=== PATIENT | female | born 1990 | race Caucasian/White ===

== ENCOUNTER 2019-05-06 09:17 | Outpatient (CLI) | payer OTHER ==
[~2019-05-06] VITALS: Ht 139.7 cm; Wt 41.4 kg
[2019-05-06 09:25] VITALS: BP 109/66
[2019-05-06] MEDS ORDERED: FLU VACC QS2019-20 36MOS UP/PF 0.5 ML IM-VACC ONE (10:00)
== END 2019-05-06 10:23 | disposition home or self-care (01) ==
LOC: LDOP 09:17
PROVIDERS: ATTEND Obstetrics & Gynecology
DX: Z04.1 Encounter for examination and observation following transport accident (principal); Z34.02 Encounter for supervision of normal first pregnancy, second trimester; Z3A.20 20 weeks gestation of pregnancy
CPT/HCPCS: 90686; 96372; 99201; G0463

== ENCOUNTER 2019-08-18 14:13 | Outpatient (CLI) | payer OTHER ==
[~2019-08-18] VITALS: Ht 139.7 cm; Wt 48.4 kg
[2019-08-18 14:28] VITALS: BP 104/57
[2019-08-18 16:58] LABS: MICROSCOPIC INDICATED
== END 2019-08-18 16:15 | disposition home or self-care (01) ==
LOC: LDOP 14:13
PROVIDERS: ATTEND Obstetrics & Gynecology
DX: O26.893 Other specified pregnancy related conditions, third trimester (principal); R10.9 Unspecified abdominal pain; Z3A.34 34 weeks gestation of pregnancy
CPT/HCPCS: 59025; 81001; 87086; 99211; G0463

== ENCOUNTER 2019-08-21 20:43 | Observation (INO) | payer OTHER ==
[~2019-08-21] VITALS: Ht 137.2 cm; Wt 48.6 kg
[2019-08-21 20:49] VITALS: BP 125/55
[2019-08-21] MEDS ORDERED: TERBUTALINE 1 MG/ML, 1ML ONE (21:44)
[2019-08-21] MEDS ORDERED: BETAMETHASONE 6 MG/ML, 5ML IM ONE (21:44)
[2019-08-21] MEDS ORDERED: BETAMETHASONE 6 MG/ML, 5ML IM SCH (22:00)
[2019-08-21] MEDS ORDERED: TERBUTALINE 1 MG/ML, 1ML SQ PRN (22:00)
[2019-08-21 23:12] LABS: MICROSCOPIC INDICATED
[2019-08-22] MEDS ORDERED: NITROFURANTOIN (MACROBID) 100 MG CAPSULE ONE ×2 (02:20→09:07)
[2019-08-22] MEDS ORDERED: NITROFURANTOIN (MACROBID) 100 MG CAPSULE PO ONE ×2 (02:30→10:00)
[2019-08-22] MEDS ORDERED: D5%-LACTATED RINGERS 1,000 ML IV SCH (07:00)
== END 2019-08-22 11:30 | disposition home or self-care (01) ==
LOC: LDOP 20:43 → LDIP 08-22 01:24
PROVIDERS: ADMIT Obstetrics & Gynecology; ATTEND Obstetrics & Gynecology
DX: O60.03 Preterm labor without delivery, third trimester (principal); O23.43 Unspecified infection of urinary tract in pregnancy, third trimester; O34.219 Maternal care for unspecified type scar from previous cesarean delivery; Z3A.35 35 weeks gestation of pregnancy
CPT/HCPCS: 59025; 81001; 87086; 96372; 99211; G0378; J0702; J3105; J7121; G0463

== ENCOUNTER 2019-08-22 16:16 | Inpatient (IN) | payer OTHER ==
[~2019-08-22] VITALS: Ht 137.2 cm; Wt 48.6 kg
[2019-08-22] MEDS ORDERED: OXYTOCIN 30U/ 0.9% NaCL 500ML 500 ML ONE (16:53)
[2019-08-22] MEDS ORDERED: NEWBORN KIT ONE (16:53)
[2019-08-22] MEDS ORDERED: SODIUM CITRATE/CITRIC ACID 30 ML UDC ONE (16:59)
[2019-08-22] MEDS ORDERED: METOCLOPRAMIDE 5 MG/ML, 2ML ONE (16:59)
[2019-08-22] MEDS ORDERED: LACTATED RINGERS 1,000 ML IVBOLUS ONE (17:00)
[2019-08-22] MEDS ORDERED: SODIUM CITRATE/CITRIC ACID 30 ML UDC PO ONE (17:00)
[2019-08-22] MEDS ORDERED: PLEASE ENTER HEIGHT AND WEIGHT MC SCH (17:00)
[2019-08-22] MEDS ORDERED: METOCLOPRAMIDE 5 MG/ML, 2ML IV ONE (17:00)
[2019-08-22] MEDS ORDERED: CEFAZOLIN 1,000 MG ONE (17:02)
[2019-08-22] MEDS ORDERED: OXYTOCIN 10 UNITS/ML, 1ML ONE (17:02)
[2019-08-22] MEDS ORDERED: ONDANSETRON 2MG/ML, 2ML ONE (17:02)
[2019-08-22] MEDS ORDERED: HYDROmorphone 2 MG/ML, 1ML ONE (17:03)
[2019-08-22] MEDS ORDERED: FENTANYL PF 100 MCG/2ML ONE (17:03)
[2019-08-22] MEDS ORDERED: SODIUM CHLORIDE 0.9% PF 10ML ONE ×2 (17:04)
[2019-08-22 17:08] VITALS: BP 104/61
[2019-08-22 17:15] LABS: MEAN CORPUSCULAR HEMOGLOBIN 24.8 pg (27.0-34.8); MEAN CORPUSCULAR HGB CONC 33.2 g/dL (32.4-35.8); MEAN CORPUSCULAR VOLUME 74.8 fL (80-100); MEAN PLATELET VOLUME 7.1 fL (7.4-10.4); PLATELET COUNT 245 x10^3/uL (130-400); RED BLOOD COUNT 4.78 x10^6/uL (3.82-5.3); RED CELL DISTRIBUTION WIDTH 14.1 % (9.6-15.2)
[2019-08-22 17:48] LABS: MD YES
[2019-08-22 18:25] LABS: BAND#(MANUAL) 0.69 x10^3/uL; BANDS%(MANUAL) 5 % (0-7); LYMPHS% (MANUAL) 8 % (22-44); MONOS#(MANUAL) 0.55 x10^3/uL (0.3-2.7); MONOS% (MANUAL) 4 % (2-9); MYELOCYTES# (MANUAL) 0.28 x10^3/uL (0-0); MYELOCYTES% (MANUAL) 2 % (0-0); SEG#(MANUAL) 11.18 x10^3/uL (1.8-6.8); SEGS% (MANUAL) 81 % (42-75)
[2019-08-22 18:26] LABS: <PLATELET ESTIMATE> ADEQUATE; HYPOCHROMIA 1+; MICROCYTOSIS 1+; POLYCHROMASIA 1+
[2019-08-22 18:27] LABS: <PLT MORPHOLOGY> NORMAL PLT MORPH
[2019-08-22] MEDS ORDERED: KETOROLAC 30 MG/1 ML ONE (18:32)
[2019-08-22] MEDS: LACTATED RINGERS 1,000 ML IV SCH ×2 (18:37→19:16)
[2019-08-22] MEDS ORDERED: ACETAMINOPHEN 325 MG TABLET PO PRN (19:00)
[2019-08-22] MEDS ORDERED: ONDANSETRON 2MG/ML, 2ML IV PRN (19:00)
[2019-08-22] MEDS ORDERED: SIMETHICONE 80 MG CHEW TAB PO PRN (19:00)
[2019-08-22] MEDS ORDERED: OXYcodone IR 5MG TABLET PO PRN (19:00)
[2019-08-22] MEDS ORDERED: MISOPROSTOL 200 MCG TABLET PR PRN (19:00)
[2019-08-22] MEDS: KETOROLAC 30 MG/1 ML IV SCH (19:00)
[2019-08-22] MEDS ORDERED: MORPHINE SULFATE 4 MG/ML, 1ML IVPush PRN (19:00)
[2019-08-22] MEDS: OXYTOCIN 30U/ 0.9% NaCL 500ML 500 ML IV SCH (19:16)
[2019-08-22] MEDS ORDERED: CALCIUM CARBONATE 500 MG TAB.CHEW PO PRN (20:00)
[2019-08-22 20:25] VITALS: BP 104/63
[2019-08-22 23:50] VITALS: BP 118/67
[2019-08-23] MEDS: KETOROLAC 30 MG/1 ML IV SCH ×4 (01:16→19:17)
[2019-08-23] MEDS: LACTATED RINGERS 1,000 ML IV SCH ×5 (02:37→18:37)
[2019-08-23] MEDS: OXYTOCIN 30U/ 0.9% NaCL 500ML 500 ML IV SCH ×2 (03:30→14:37)
[2019-08-23 05:24] VITALS: BP 120/64
[2019-08-23 05:33] LABS: MEAN CORPUSCULAR HEMOGLOBIN 25.1 pg (27.0-34.8); MEAN CORPUSCULAR HGB CONC 32.9 g/dL (32.4-35.8); MEAN CORPUSCULAR VOLUME 76.3 fL (80-100); MEAN PLATELET VOLUME 7.1 fL (7.4-10.4); PLATELET COUNT 216 x10^3/uL (130-400); RED BLOOD COUNT 3.97 x10^6/uL (3.82-5.3); RED CELL DISTRIBUTION WIDTH 14.4 % (9.6-15.2)
[2019-08-23 05:53] LABS: MD YES
[2019-08-23 05:55] LABS: LYMPH#(MANUAL) 2.56 x10^3/uL (1-3.4); LYMPHS% (MANUAL) 16 % (22-44); MONOS#(MANUAL) 1.12 x10^3/uL (0.3-2.7); MONOS% (MANUAL) 7 % (2-9); SEG#(MANUAL) 12.32 x10^3/uL (1.8-6.8); SEGS% (MANUAL) 77 % (42-75)
[2019-08-23 05:56] LABS: <PLATELET ESTIMATE> ADEQUATE; <PLT MORPHOLOGY> NORMAL PLT MORPH; MICROCYTOSIS 1+; POLYCHROMASIA 1+
[2019-08-23 08:00] VITALS: BP 96/57
[2019-08-23] MEDS: DOCUSATE 100 MG CAPSULE PO PRN (08:34)
[2019-08-23] MEDS: PRENATAL VIT/IRON/FA 1 EACH TABLET PO SCH (08:34)
[2019-08-23] MEDS: OXYcodone/APAP 5/325MG TABLET PO PRN ×2 (11:58→16:20)
[2019-08-23 12:00] VITALS: BP 138/80
[2019-08-23 16:16] VITALS: BP 114/58
[2019-08-23 19:30] VITALS: BP 111/54
[2019-08-24] MEDS: LACTATED RINGERS 1,000 ML IV SCH ×5 (00:37→18:37)
[2019-08-24] MEDS: OXYTOCIN 30U/ 0.9% NaCL 500ML 500 ML IV SCH ×2 (00:37→10:37)
[2019-08-24] MEDS: KETOROLAC 30 MG/1 ML IV SCH (01:00)
[2019-08-24] MEDS ORDERED: IBUPROFEN 600 MG TABLET ONE (01:32)
[2019-08-24] MEDS: IBUPROFEN 600 MG TABLET PO PRN ×4 (01:37→21:59)
[2019-08-24] MEDS: PRENATAL VIT/IRON/FA 1 EACH TABLET PO SCH (07:56)
[2019-08-24] MEDS: DOCUSATE 100 MG CAPSULE PO PRN ×2 (07:56→22:00)
[2019-08-24 08:00] VITALS: BP 104/62
[2019-08-24] MEDS ORDERED: DIPHTHERIA-TETANUS ADULT 0.5ML IM-VACC ONE (12:00)
[2019-08-24] MEDS ORDERED: DIPH,PERTUSS(ACELL),TET VAC/PF NC IM-VACC ONE ×2 (12:12→12:30)
[2019-08-24] MEDS: OXYcodone/APAP 5/325MG TABLET PO PRN ×2 (13:00→21:59)
[2019-08-24] MEDS ORDERED: IBUPROFEN 600 MG TABLET PO PRN (19:00)
[2019-08-24 22:00] VITALS: BP 129/73
[2019-08-25] MEDS: IBUPROFEN 600 MG TABLET PO PRN ×2 (03:59→15:46)
[2019-08-25] MEDS: OXYcodone/APAP 5/325MG TABLET PO PRN ×3 (04:00→19:18)
[2019-08-25 08:15] VITALS: BP 143/78
[2019-08-25] MEDS: DOCUSATE 100 MG CAPSULE PO PRN ×2 (08:50→19:17)
[2019-08-25] MEDS: PRENATAL VIT/IRON/FA 1 EACH TABLET PO SCH (08:50)
[2019-08-25] MEDS ORDERED: DOCU-131 PO (11:10)
[2019-08-25] MEDS ORDERED: IBUP-1222 PO (11:12)
[2019-08-25] MEDS ORDERED: OXYC-302 PO (11:12)
[2019-08-25] MEDS ORDERED: FERR324T5 PO (11:13)
[2019-08-25 19:30] VITALS: BP 127/66
[2019-08-26] MEDS: IBUPROFEN 600 MG TABLET PO PRN (06:31)
[2019-08-26] MEDS: OXYcodone/APAP 5/325MG TABLET PO PRN (06:31)
[2019-08-26 08:53] VITALS: BP 136/73
== END 2019-08-26 11:20 | disposition home or self-care (01) | DRG 786 ==
LOC: LDOP 16:16 → LDIP 16:56 → 2NW 20:15
PROVIDERS: ADMIT Obstetrics & Gynecology; ATTEND Obstetrics & Gynecology
PROC: 10D00Z1 Extraction of Products of Conception, Low, Open Approach (ICD-10-PCS; principal; 2019-08-23)
DX: O34.211 Maternal care for low transverse scar from previous cesarean delivery (principal); O60.14X0 Preterm labor third trimester with preterm delivery third trimester, not applicable or unspecified; Z37.0 Single live birth; Z3A.35 35 weeks gestation of pregnancy
CPT/HCPCS: 36415; 82803; 85025; 86592; 86850; 86900; 86902; 90715; G0378; J0690; J1170; J1885; J2405; J3010; J2590; J2765; J7120